=== PATIENT | male | born 1945 | race African-American/Black ===

== ENCOUNTER 2016-08-05 09:22 | Emergency (ER) | payer OTHER ==
[~2016-08-05 09:22] MED LIST: ASAB PO; FLOMAX4 PO; KEPPRA500 PO; LOTREL1 CA1 PO; NORV5 PO; PRIN20 PO; ZESTRIL20 MG PO
[2016-08-05 09:46] LABS: BASOPHILS 0.5 %; BASOPHILS ABSOLUTE 0.02 10/3/uL (0.0-0.16); EOSINOPHILS 3.7 %; EOSINOPHILS ABSOLUTE 0.16 10/3/uL (0.0-0.53); ER CBC TAT 0 Hrs 08 Mins; HEMATOCRIT 35.7 % (40.0-51.0); HEMOGLOBIN 11.8 g/dL (13.6-17.8); LYMPHOCYTES 32.6 %; LYMPHOCYTES ABSOLUTE 1.43 10/3/uL (0.67-4.30); MANUAL DIFF NO %; MEAN CORPUS HGB CONC 33.1 g/dL (32.0-36.0); MEAN CORPUSCULAR HEMOGLOB 27.5 pg (26.0-34.0); MEAN CORPUSCULAR VOLUME 83.2 fL (80-100); MEAN PLATELET VOLUME 10.1 fL (9.2-13.0); MONOCYTES 9.1 %; NEUTROPHILS 54.1 %; NEUTROPHILS ABSOLUTE 2.37 10/3/uL (2.02-8.40); PLATELET COUNT 177 10/3/uL (150-400); RBC DISTRIBUTION WIDTH 14.4 % (12.0-16.0); RED CELL COUNT 4.29 10/6/uL (4.7-6.1); WHITE BLOOD CELLS 4.4 10/3/uL (4.5-10.5)
[2016-08-05 10:07] LABS: BUN (BLOOD UREA NITROGEN) 15 MG/DL (6-23); CALCIUM, SERUM 8.9 MG/DL (8.5-10.4); CHLORIDE, SERUM 110 MMOL/L (96-112); CO2 (CARBON DIOXIDE) 30 MMOL/L (24-34); CREATININE 0.95 MG/DL (0.70-1.30); GFR AFRICAN AMERICAN 92 ML/MIN (>=60); GFR NON AFRICAN AMERICAN 80 ML/MIN (>=60); GLUCOSE, SERUM 85 MG/DL (60-99); POTASSIUM, SERUM 4.1 MMOL/L (3.5-5.3); SODIUM, SERUM 144 MMOL/L (135-148)
== END 2016-08-05 11:20 | disposition home or self-care (01) ==
LOC: ER 09:22
PROVIDERS: Emergency Medicine
DX: I61.1 Nontraumatic intracerebral hemorrhage in hemisphere, cortical (principal); R55 Syncope and collapse; I10 Essential (primary) hypertension; Z86.73 Personal history of transient ischemic attack (TIA), and cerebral infarction without residual deficits; Z79.82 Long term (current) use of aspirin
CPT/HCPCS: 70450; 80048; 85025; 93005; 99291

== ENCOUNTER 2016-12-08 10:44 | Emergency (ER) | payer OTHER | END 2016-12-08 11:42 | disposition home or self-care (01) | LOC: ER 10:44 | DX: Z00.00 Encounter for general adult medical examination without abnormal findings (principal); Z86.73 Personal history of transient ischemic attack (TIA), and cerebral infarction without residual deficits; I10 Essential (primary) hypertension; Z79.82 Long term (current) use of aspirin; Z79.899 Other long term (current) drug therapy | CPT/HCPCS: 93005; 99283 ==